=== PATIENT | male | born 1995 ===

== ENCOUNTER 2018-07-17 20:08 | Emergency (ER) | payer MEDICAID ==
[~2018-07-17] VITALS: Ht 162.6 cm; Wt 68.5 kg
[2018-07-17 20:47] VITALS: BP 121/75
--- NOTE | 2018-07-17 22:05 | NUR ---
CALLED FOR ROOM, NOT IN LOBBY
--- NOTE | 2018-07-17 22:48 | NUR ---
NOT IN LOBBY WHEN CALLED TO BE ROOMED
--- NOTE | 2018-07-17 23:07 | NUR ---
PT NOT IN LOBBY WHEN CALLED FOR ROOM. PT ASSUMED TO HAVE LEFT
== END 2018-07-17 23:36 | disposition left against medical advice (07) ==
LOC: ED 23:20
DX: R59.1 Generalized enlarged lymph nodes (principal); H92.02 Otalgia, left ear
CPT/HCPCS: 99281